=== PATIENT | male | born 1995 | race Hispanic/Latino ===

== ENCOUNTER 2020-06-06 19:33 | Emergency (ER) | payer SELFPAY ==
[~2020-06-06] VITALS: Ht 167.6 cm; Wt 77.6 kg
[2020-06-06 20:05] VITALS: BP 138/80
== END 2020-06-06 20:08 | disposition home or self-care (01) | DRG 605 ==
LOC: ED 19:33
DX: S60.131A Contusion of right middle finger with damage to nail, initial encounter (principal); W23.0XXA Caught, crushed, jammed, or pinched between moving objects, initial encounter

== ENCOUNTER 2021-02-17 11:55 | Emergency (ER) | payer OTHER ==
[~2021-02-17] VITALS: Ht 167.6 cm; Wt 62.0 kg
[2021-02-17 12:37] LABS: HEMATOCRIT 47.5 % (39.0-50.0); HEMOGLOBIN 15.4 g/dl (14.0-18.0); IMMATURE GRANULOCYTES 0.5 % (0.0-5.0); MEAN CELL VOLUME 89.8 fL CALC (80.0-100.0); MEAN CORPUSCULAR HGB 29.1 pG CALC (26.0-32.0); MEAN CORPUSCULAR HGB CONC 32.4 g/dL CAL (32.0-36.0); NEUT# 4.66 thou/uL (1.82-7.42); RED BLOOD COUNT 5.29 mill/uL (4.70-6.10); RED CELL DISTRI WIDTH 13.5 % (11.5-15.5)
[2021-02-17 12:49] LABS: ALBUMIN 4.1 g/dL (3.2-5.0); ALKALINE PHOSPHATASE 91 u/l (38-126); ANION GAP 9 (6-22 (CALC)); BILIRUBIN, TOTAL 0.7 mg/dL (0.0-1.4); BUN 7 mg/dL (9-20); BUN/CREATININE RATIO 9 (12-20 (CALC)); CARBON DIOXIDE 28 mmol/l (22-30); CHLORIDE 103 mmol/l (95-108); CREATININE 0.8 mg/dL (0.7-1.3); GFR > 60 ML/MIN (>=60 (CALC)); GFR FOR AFR.AMER. > 60 ML/MIN (>=60 (CALC)); POTASSIUM 4.5 mmol/l (3.5-5.1); SGOT/AST 40 u/l (17-59); SODIUM 136 mmol/l (137-146); TOTAL PROTEIN 7.1 g/dL (6.3-8.2)
[2021-02-17 13:01] LABS: MYOGLOBIN 28 ng/mL (0 - 121)
[2021-02-17 13:17] LABS: URINE BILIRUBIN - DIPSTICK NEGATIVE (NEGATIVE); URINE BLOOD DIPSTICK NEGATIVE (NEGATIVE); URINE COLOR YELLOW; URINE GLUCOSE - DIPSTICK NEGATIVE (NEGATIVE); URINE KETONE NEGATIVE (NEGATIVE); URINE LEUK ESTERASE NEGATIVE (NEGATIVE); URINE PROTEIN - DIPSTICK NEGATIVE (NEG-TRACE); URINE UROBILINOGEN - DIPSTICK 0.2 E.U./dL (0.2)
[2021-02-17 13:19] LABS: URINE NITRITE - DIPSTICK NEGATIVE (Negative)
[2021-02-17 13:33] LABS: D-DIMER 0.17 mg/L (0.19-0.60); PROTHROMBIN TIME 10.5 SECONDS (9.0-12.5)
[2021-02-17 15:00] VITALS: BP 124/76
== END 2021-02-17 14:59 | disposition home or self-care (01) | DRG 204 ==
LOC: ED 11:55
DX: R06.02 Shortness of breath (principal); Z20.822 Contact with and (suspected) exposure to COVID-19

== ENCOUNTER 2021-05-01 12:45 | Emergency (ER) | payer MEDICAID ==
[~2021-05-01] VITALS: Ht 167.6 cm; Wt 82.2 kg
[2021-05-01 14:36] LABS: HEMATOCRIT 47.1 % (39.0-50.0); HEMOGLOBIN 15.4 g/dl (14.0-18.0); IMMATURE GRANULOCYTES 0.6 % (0.0-5.0); MEAN CELL VOLUME 89.7 fL CALC (80.0-100.0); MEAN CORPUSCULAR HGB 29.3 pG CALC (26.0-32.0); MEAN CORPUSCULAR HGB CONC 32.7 g/dL CAL (32.0-36.0); NEUT# 4.94 thou/uL (1.82-7.42); RED BLOOD COUNT 5.25 mill/uL (4.70-6.10); RED CELL DISTRI WIDTH 13.3 % (11.5-15.5)
[2021-05-01 14:50] LABS: ALBUMIN 4.3 g/dL (3.2-5.0); ALKALINE PHOSPHATASE 83 u/l (38-126); ANION GAP 13 (6-22 (CALC)); BILIRUBIN, TOTAL 0.5 mg/dL (0.0-1.4); BUN 6 mg/dL (9-20); BUN/CREATININE RATIO 9 (12-20 (CALC)); CARBON DIOXIDE 25 mmol/l (22-30); CHLORIDE 103 mmol/l (95-108); CREATININE 0.6 mg/dL (0.7-1.3); GFR > 60 ML/MIN (>=60 (CALC)); GFR FOR AFR.AMER. > 60 ML/MIN (>=60 (CALC)); LIPASE 36 u/l (23-300); POTASSIUM 4.2 mmol/l (3.5-5.1); SGOT/AST 35 u/l (17-59); SODIUM 136 mmol/l (137-146)
[2021-05-01 16:31] LABS: URINE BILIRUBIN - DIPSTICK NEGATIVE (NEGATIVE); URINE BLOOD DIPSTICK NEGATIVE (NEGATIVE); URINE COLOR YELLOW; URINE GLUCOSE - DIPSTICK NEGATIVE (NEGATIVE); URINE KETONE NEGATIVE (NEGATIVE); URINE LEUK ESTERASE NEGATIVE (NEGATIVE); URINE PH 7.5 (4.5-8.0); URINE PROTEIN - DIPSTICK NEGATIVE (NEG-TRACE); URINE SPECIFIC GRAVITY 1.025
[2021-05-01 16:35] LABS: URINE NITRITE - DIPSTICK NEGATIVE (Negative)
[2021-05-01 17:45] VITALS: BP 125/76
== END 2021-05-01 17:51 | disposition home or self-care (01) | DRG 392 ==
LOC: ED 12:45
DX: R19.7 Diarrhea, unspecified (principal); Z20.822 Contact with and (suspected) exposure to COVID-19
CPT/HCPCS: Q9967

== ENCOUNTER → 2021-11-23 | Emergency (ER) | payer MEDICAID | END | disposition home or self-care (01) | DRG 951 | LOC: ED 12:49 → LWOBS 14:46 | DX: Z53.21 Procedure and treatment not carried out due to patient leaving prior to being seen by health care provider (principal) ==

== ENCOUNTER 2022-03-05 12:21 | Emergency (ER) | payer OTHER ==
[~2022-03-05] VITALS: Ht 167.6 cm; Wt 81.0 kg
[2022-03-05 15:34] LABS: HEMATOCRIT 48.8 % (39.0-50.0); HEMOGLOBIN 15.9 g/dl (14.0-18.0); IMMATURE GRANULOCYTES 0.3 % (0.0-5.0); MEAN CELL VOLUME 89.4 fL CALC (80.0-100.0); MEAN CORPUSCULAR HGB 29.1 pG CALC (26.0-32.0); MEAN CORPUSCULAR HGB CONC 32.6 g/dL CAL (32.0-36.0); NEUT# 12.53 thou/uL (1.82-7.42); RED BLOOD COUNT 5.46 mill/uL (4.70-6.10); RED CELL DISTRI WIDTH 13.2 % (11.5-15.5)
[2022-03-05 16:30] LABS: ALBUMIN 4.4 g/dL (3.2-5.0); ALKALINE PHOSPHATASE 103 u/l (38-126); ANION GAP 12 (6-22 (CALC)); BILIRUBIN, TOTAL 0.5 mg/dL (0.0-1.4); BUN 10 mg/dL (9-20); BUN/CREATININE RATIO 13 (12-20 (CALC)); CARBON DIOXIDE 26 mmol/l (22-30); CHLORIDE 106 mmol/l (95-108); CREATININE 0.7 mg/dL (0.7-1.3); GFR FOR AFR.AMER. > 60 ML/MIN (>=60 (CALC)); GFR OTHER RACES > 60 ML/MIN (>=60 (CALC)); POTASSIUM 4.2 mmol/l (3.5-5.1); SGOT/AST 24 u/l (17-59); SODIUM 139 mmol/l (137-146); TOTAL PROTEIN 8.2 g/dL (6.3-8.2)
[2022-03-05] MEDS ORDERED: CLINDAMYCIN HC150 MG PO (18:12)
[2022-03-05] MEDS ORDERED: PREDNISONE20 MG PO (18:12)
[2022-03-05] MEDS ORDERED: NAPROXEN500 MG PO (18:12)
[2022-03-05 18:34] VITALS: BP 130/86
== END 2022-03-05 19:05 | disposition home or self-care (01) ==
LOC: ED 12:21
PROVIDERS: Nurse Practitioner
DX: J36 Peritonsillar abscess (principal); Z20.822 Contact with and (suspected) exposure to COVID-19
CPT/HCPCS: Q9967

== ENCOUNTER 2022-12-04 08:50 | Emergency (ER) | payer OTHER ==
[~2022-12-04] VITALS: Ht 167.6 cm; Wt 86.0 kg
[~2022-12-04 08:50] MED LIST: CLINDAMYCIN HC150 MG PO; NAPROXEN500 MG PO; PREDNISONE20 MG PO
[2022-12-04 09:18] VITALS: BP 137/90
[2022-12-04 09:30] VITALS: BP 129/94
[2022-12-04 09:32] LABS: BASO% 0.6 % (0-3); EOS% 7.6 % (0-8); HEMATOCRIT 50.2 % (39.0-50.0); HEMOGLOBIN 16.3 g/dl (14.0-18.0); IMMATURE GRANULOCYTES 0.8 % (0.0-5.0); LYMPH% 31.1 % (15-41); MEAN CELL VOLUME 87.9 fL CALC (80.0-100.0); MEAN CORPUSCULAR HGB 28.5 pG CALC (26.0-32.0); MEAN CORPUSCULAR HGB CONC 32.5 g/dL CAL (32.0-36.0); MONO% 6.8 % (2-13); NEUT# 4.69 thou/uL (1.82-7.42); NEUT% 53.1 % (42-76); RED BLOOD COUNT 5.71 mill/uL (4.70-6.10); RED CELL DISTRI WIDTH 13.6 % (11.5-15.5)
[2022-12-04 09:54] LABS: ALBUMIN 4.7 g/dL (3.2-5.0); ALKALINE PHOSPHATASE 92 u/l (38-126); ANION GAP 12 (6-22 (CALC)); BILIRUBIN, TOTAL 0.5 mg/dL (0.2-1.3); BUN 9 mg/dL (9-20); BUN/CREATININE RATIO 13 (12-20 (CALC)); CARBON DIOXIDE 29 mmol/l (22-30); CHLORIDE 102 mmol/l (95-108); CREATININE 0.7 mg/dL (0.7-1.3); GFR FOR AFR.AMER. > 60 ML/MIN (>=60 (CALC)); GFR OTHER RACES > 60 ML/MIN (>=60 (CALC)); LIPASE 44 u/l (23-300); POTASSIUM 4.2 mmol/l (3.5-5.1); SGOT/AST 47 u/l (17-59); SODIUM 138 mmol/l (137-146); TOTAL PROTEIN 7.4 g/dL (6.3-8.2)
[2022-12-04 10:30] VITALS: BP 122/74
[2022-12-04 10:39] LABS: URINE BILIRUBIN - DIPSTICK NEGATIVE (NEGATIVE); URINE BLOOD DIPSTICK NEGATIVE (NEGATIVE); URINE COLOR YELLOW; URINE GLUCOSE - DIPSTICK NEGATIVE (NEGATIVE); URINE KETONE NEGATIVE (NEGATIVE); URINE LEUK ESTERASE NEGATIVE (NEGATIVE); URINE PH 7.5 (4.5-8.0); URINE PROTEIN - DIPSTICK NEGATIVE (NEG-TRACE)
[2022-12-04 10:44] LABS: URINE NITRITE - DIPSTICK NEGATIVE (Negative)
[2022-12-04 11:41] VITALS: BP 104/72
[2022-12-04 12:00] VITALS: BP 115/60
[2022-12-04] MEDS ORDERED: PROTONIX40 M2 PO (12:11)
[2022-12-04] MEDS ORDERED: IMODIUM A-D2 M3 PO (12:11)
[2022-12-04 12:16] VITALS: BP 115/60
== END 2022-12-04 12:23 | disposition home or self-care (01) ==
LOC: ED 08:50
PROVIDERS: Family Medicine
DX: R19.7 Diarrhea, unspecified (principal); R10.13 Epigastric pain
CPT/HCPCS: S0164